=== PATIENT | female | born 1985 | race Caucasian/White ===

== ENCOUNTER 2017-01-23 11:53 | Emergency (ER) | END 2017-01-23 14:19 | disposition home or self-care (01) | DX: N23 Unspecified renal colic (principal); R11.2 Nausea with vomiting, unspecified; Z87.891 Personal history of nicotine dependence | CPT/HCPCS: 36415; 74176; 80053; 81001; 83690; 85025; 96374; 96375; J2270; J2405; J7030; Z7502 ==

== ENCOUNTER 2017-04-02 12:17 | Emergency (ER) | payer OTHER ==
[~2017-04-02] VITALS: Ht 152.4 cm; Wt 89.0 kg
[~2017-04-02 12:17] MED LIST: DENIES MEDS; HYDR-902 PO; IBUP-1542 PO; IBUP800T25 PO; ONDA4TAB8 PO; TAMS-14 PO
[2017-04-02 12:19] VITALS: Ht 152.4 cm; Wt 89.0 kg
[2017-04-02] MEDS ORDERED: KETOROLAC 15 MG INJ IM STA (14:37)
--- NOTE | 2017-04-02 14:37 | ERD ---
ER Documentation Chief Complaint Date/Time DATE: 04/02/17 TIME: 14:33 Chief Complaint back pain x 3 days HPI This 31-year-old female presents to emergency department for lumbar pain reports remote injury a week ago, fell down stairs. hx of kidney stones. denies dysuria , n/v. pain is worse getting up and down from a seated position she reports she is having difficulty finding a position of comfort worse when she is laying on the right side that felt bilaterally. ROS All systems reviewed and are negative except as per history of present illness. Medications Home Meds Active Scripts Naproxen* (Naprosyn*) 500 Mg Tablet, 500 MG PO BID Y for PAIN AND/OR INFLAMMATION, #20 TAB Prov:ZHAO,STAR 04/02/17 Hydrocodone/Acetaminophen (Macon 5-325 Tablet) 1 Each Tablet, 1 TAB PO Q6H Y for PAIN, #12 TAB Prov:ZHAO,STAR 04/02/17 Ibuprofen* (Motrin*) 800 Mg Tab, 800 MG PO Q6, #30 TAB Prov:ANTONIO WILLINGHAM PA-C 01/23/17 Hydrocodone/Acetaminophen (Macon 10-325 Tablet) 1 Each Tablet, 1 TAB PO Q6H Y for PAIN, #20 TAB Prov:ANTONIO WILLINGHAM PA-C 01/23/17 Ibuprofen* (Motrin*) 600 Mg Tab, 600 MG PO Q6, #30 TAB Prov:GELY ARDON PA-C 04/23/16 Ondansetron Hcl* (Zofran*) 4 Mg Tablet, 4 MG PO Q6H for NAUSEA AND/OR VOMITING, #30 TAB Prov:GELY ARDON PA-C 04/23/16 Tamsulosin Hcl* (Flomax*) 0.4 Mg Cap.er.24h, 0.4 MG PO BID, #30 CAP Prov:GELY ARDON PA-C 04/23/16 Hydrocodone/Acetaminophen (Macon 10-325 Tablet) 1 Each Tablet, 1 TAB PO Q6H Y for PAIN, #12 TAB Prov:GELY ARDON PA-C 04/23/16 Reported Medications [Denies Meds] No Conflict Check 10/12/10 Allergies Allergies: Coded Allergies: No Known Allergy (Verified , 01/23/17) PMhx/Soc History of Surgery: Yes (TUBAL LIGATION 2009) Anesthesia Reaction: No Hx Neurological Disorder: No Hx Respiratory Disorders: No Hx Cardiac Disorders: No Hx Psychiatric Problems: No Hx Miscellaneous Medical Probl: Yes (bladder infection) Hx Alcohol Use: No Hx Substance Use: No Hx Tobacco Use: Yes Physical Exam Vitals Vital Signs Date Time Temp Pulse Resp B/P Pulse Ox O2 Delivery O2 Flow Rate FiO2 04/02/17 12:19 98.1 118 18 124/73 99 Vitals stable, notes reviewed Physical Exam Const: Nourished well-hydrated well-appearing no acute distress obvious discomfort. Head: Eyes: ENT: Neck: Resp: Respirations even and unlabored, no respiratory distress Cardio: Abd: Soft, non tender, non distended no CVA tenderness Skin: Back Exam: Skin: No bruising or rash Compartments: Soft Motor: Leg rises if equivocal, patient unable to lift legs off of bed. Pain with flexion, abduction and abduction bilaterally. Sensation: Intact to light touch throughout Bones: No midline TTP Ext: No cyanosis, or edema Neur: Awake and alert Psych: Normal Mood and Affect Results 24 hrs Laboratory Tests Test 04/02/17 15:17 Bedside Urine pH (LAB) 6.0 Bedside Urine Protein (LAB) Trace Bedside Urine Glucose (UA) Negative Bedside Urine Ketones (LAB) Negative Bedside Urine Blood Trace-lysed Bedside Urine Nitrite (LAB) Negative Bedside Urine Leukocyte Esterase (L Negative Current Medications Medications (Trade) Dose Ordered Sig/Trevor Route PRN Reason Start Time Stop Time Status Last Admin Dose Admin Ketorolac Tromethamine (Toradol) 15 mg ONCE STAT IM 04/02/17 14:37 04/02/17 14:41 DC 04/02/17 15:03 Diazepam (Valium) 5 mg ONCE ONCE PO 04/02/17 15:00 04/02/17 15:01 DC 04/02/17 15:03 Procedures/MDM PROCEDURE: XR Lumbar Spine. CLINICAL INDICATION: back pain TECHNIQUE: AP, lateral and cone-down lateral view of the lumbar spine were obtained. COMPARISON: No prior studies are available for comparison. 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 There is normal vertebral mineralization and alignment. No fracture or subluxation is seen. The disc spaces are normal in appearance. The posterior elements are unremarkable. The soft tissues appear normal. 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 No acute fracture or subluxation. Electronically viewed and signed by .Saran Frausto MD, on 04/02/2017 15: 38 This 31-year-old female presents to emergency department today for evaluation of back pain. Patient reports she has been symptomatic for the last 3 days, pain is worse with movement, sitting and standing from a seated position. Patient reports difficulty finding position of comfort while sleeping, unable to lie on right side. Patient reports remote injury states she fell down stairs onto her coccyx last week. She denies instant pain, and has not thought anything about the fall until 3 days ago. Patient denies dysuria, hematuria, abdominal pain. Reports history of nephrolithiasis. Denies nausea vomiting fever chills. These emergency room course includes pain control with intramuscular Toradol 15 mg, Valium 5 mg, urinalysis and lumbar x-ray. Cement possible transitional anatomy of the lumbar spine with sacralization of L5. 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 Patient should follow-up with primary care physician for referral to orthopedics. Patient will be discharged today with pain medication, percent 500 mg twice daily 10 days, Naprosyn reports pain greater than 5 out of 10 count of 12 given. Patient is stable with no new complaints during ER course, clinically there is no current evidence to suggest cauda equina syndrome, vertebral fracture. Vertebral mass , abscess or any other emergent condition appearing to require further evaluation or hospitalization. I feel the patient is stable for discharge at this time. I have discussed results, examination findings, the treatment plan with the patient and family present prior to discharge. Indications for emergent reevaluation, side effects of medication were also discussed. All questions were answered. Patient verbalizes understanding and agrees with plan of care. Case discussed with supervising physician Dr. Viviane Borrego Diagnosis: Primary Impression: Back pain Back pain location: low back pain Chronicity: unspecified Back pain laterality: bilateral Sciatica presence: with sciatica Sciatica laterality: sciatica of right side Qualified Code: M54.41 - Bilateral low back pain with right-sided sciatica, unspecified chronicity Condition: Good Patient Instructions: Back Pain W/ Sciatica [facility] Additional Instructions: Thank you for for coming to [facility] for your care today. Please ask your nurse or provider if you have questions about your care today and do not leave until all your questions have been answered. Please use any medications given as directed and follow-up with your doctor (or the doctor you were referred to) in the next 2-3 days. If you do not have a primary care doctor you may follow up at the [facility] [place] (listed below). You may also use motrin and tylenol as needed for fever and/or pain unless instructed otherwise by your provider or nurse. Indications for more urgent follow-up have been discussed, but you may return to the Emergency Department at ANY time for any worrisome or worsening symptoms. If you have abdominal pain, please know that no test or exam you received is perfect and you should follow up within 8 hours for continued pain. If you had any imaging studies today, such as an X-Ray or CT Scan, these studies will be reviewed later by a radiologist. You will be called if there are important findings that were not identified today, so make sure the contact information you provided at registration is correct. If you received any narcotic pain control medicine today, such as Vicodin, Morphine or Dilaudid, your coordination and judgment may be affected for a number of hours. Please do not drive or operate heavy machinery, and you may want someone to assist you at home. If you were given a prescription for narcotic medication, be aware that it is very addictive- use sparingly and only if necessary. STAR CHURCHILL Apr 02, 2017 14:37
[2017-04-02] MEDS ORDERED: DIAZEPAM 5 MG TAB PO ONE (15:00)
[2017-04-02 15:11] LABS: URINE BLOOD (Dip) POC Trace-lysed (NEGATIVE)
--- NOTE | 2017-04-02 15:38 | RADRPT ---
PROCEDURE: XR Lumbar Spine. CLINICAL INDICATION: back pain TECHNIQUE: AP, lateral and cone-down lateral view of the lumbar spine were obtained. COMPARISON: No prior studies are available for comparison. 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 There is normal vertebral mineralization and alignment. No fracture or subluxation is seen. The disc spaces are normal in appearance. The posterior elements are unremarkable. The soft tissues appear normal. 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 No acute fracture or subluxation. .Saran Frausto MD, Date Time Electronically viewed and signed by .Saran Frausto MD, MD on 04/02/2017 15:38 .S/
[2017-04-02] MEDS ORDERED: NAPR-260 PO (16:19)
[2017-04-02] MEDS ORDERED: HYDR-906 PO (16:19)
[2017-04-02 16:30] VITALS: BP 120/70; PULSE 68; RESP 18; TEMP 98
== END 2017-04-02 16:37 | disposition home or self-care (01) ==
LOC: FTE 12:17
DX: M54.41 Lumbago with sciatica, right side (principal); Z87.891 Personal history of nicotine dependence
CPT/HCPCS: 72100; 81003; 96372; J1885; Z7502; Z7610